=== PATIENT | male | born 1940 | race Asian ===

== ENCOUNTER 2018-07-24 08:49 | Day surgery (SDC) | payer OTHER ==
[~2018-07-24] VITALS: Ht 174 cm; Wt 85.0 kg
[2018-07-24] MEDS ORDERED: AMLO10TA PO (10:40)
[2018-07-24] MEDS ORDERED: FAMO-90 PO (10:40)
[2018-07-24] MEDS ORDERED: LOSA50TA66 PO (10:40)
[2018-07-24] MEDS ORDERED: fentaNYL 0.05 MG/ML VIAL ONE (10:46)
[2018-07-24] MEDS ORDERED: MIDAZOLAM 2 MG/2 ML VIAL ONE ×2 (10:47)
[2018-07-24] MEDS ORDERED: MIDAZOLAM 2 MG/2 ML VIAL IVP ONE (11:10)
== END 2018-07-24 12:15 | disposition home or self-care (01) ==
LOC: MMU 08:49 → MDS 08:49
PROVIDERS: ATTEND Internal Medicine Gastroenterology
DX: K44.9 Diaphragmatic hernia without obstruction or gangrene (principal); K29.70 Gastritis, unspecified, without bleeding; K26.9 Duodenal ulcer, unspecified as acute or chronic, without hemorrhage or perforation; K22.10 Ulcer of esophagus without bleeding; I10 Essential (primary) hypertension; I25.10 Atherosclerotic heart disease of native coronary artery without angina pectoris; K21.9 Gastro-esophageal reflux disease without esophagitis; E66.3 Overweight; Z88.1 Allergy status to other antibiotic agents; Z88.2 Allergy status to sulfonamides; Z68.28 Body mass index [BMI] 28.0-28.9, adult; Z87.891 Personal history of nicotine dependence; Z79.82 Long term (current) use of aspirin; Z79.899 Other long term (current) drug therapy; Z98.890 Other specified postprocedural states; Z95.818 Presence of other cardiac implants and grafts
CPT/HCPCS: 36415; 43239; 86677; J2250; J3010